=== PATIENT | female | born 1960 | race Caucasian/White ===

== ENCOUNTER 2024-04-10 06:10 | Day surgery (SDC) | payer BC, SELFPAY ==
[2024-03-26 13:27] VITALS: BMI 33.8
[2024-03-26 13:48] LABS: % Basophils 1.4 % (0-2); % Eosinophils 3.4 % (0-6); % Immature Granulocytes 0.3 % (0-0.5); % Lymphocytes 27.2 % (20.5-51.1); % Monocytes 9.1 % (1.7-9.3); % Neutrophils 58.6 % (42.2-75.2); Absolute Basophils 0.1 10^3/uL (0-0.2); Absolute Eosinophils 0.2 10^3/uL (0-0.7); Absolute Lymphocytes 1.9 10^3/uL (1.2-3.4); Absolute Monocytes 0.7 10^3/uL (0.1-0.6); Absolute Neutrophils 4.2 10^3/uL (1.4-6.5); Hematocrit 43.7 % (37.0-47.0); Hemoglobin 14.4 g/dL (12.0-16.0); Mean Corpuscular Hgb 30.1 pg (27.0-31.0); Mean Corpuscular Volume 91.2 fL (81.0-99.0); Mean Platelet Volume 9.8 fL (7.4-10.4); Nucleated Red Blood Cells % 0 %; Platelet Count 221 10^3/uL (130-400); Red Blood Cell Count 4.79 10^6/uL (4.20-5.40); Red Cell Dist. Width 13.5 % (11.5-14.5); White Blood Cell Count 7.1 10^3/uL (4.8-10.8)
[2024-03-26 14:47] LABS: Blood Urea Nitrogen 16 mg/dl (7-17); Calcium 9.6 mg/dl (8.4-10.2); Carbon Dioxide 26 mmol/L (22-30); Chloride 104 mmol/L (98-107); Estimated Creatinine Clearance 82 ml/min; Glucose 98 mg/dl (70-99); Potassium 4.8 mmol/L (3.5-5.1); Sodium 139 mmol/L (135-145); eGFR > 60.00
[2024-04-10] VITALS (9 sets, daily range): BP systolic 122–149; BP diastolic 74–89; BMI 33.8
[2024-04-10] MEDS: CELEBREX 200 MG PO (09:29)
[2024-04-10] MEDS: TYLENOL 1000 MG PO (09:29)
[2024-04-10] MEDS: NORMOSOL-R/PLASMALYTE-A 1000 IV (09:38)
== END 2024-04-10 15:45 | disposition home or self-care (01) ==
LOC: SDS 06:10
PROVIDERS: ATTENDING PHYSICIAN Orthopaedic Surgery; FAMILY PHYSICIAN Family Medicine
DX: M75.112 Incomplete rotator cuff tear or rupture of left shoulder, not specified as traumatic (principal)
CPT/HCPCS: 29827; 29823; 36415; 80048; 85025; 93005; C1713